=== PATIENT | female | born 2000 | race African-American/Black ===

== ENCOUNTER 2024-01-30 18:01 | Emergency (ER) | payer MEDICAID, OTHER ==
[2024-01-30 20:12] LABS: HEPATITIS C AB NON-REACTIVE (Non-React)
[2024-01-30 20:13] LABS: HIV RAPID SCREEN RLFX COMFIRM NON-REACTIVE (Non-React)
[2024-02-01 11:47] LABS: HBS AB 3.41 IU/L
== END 2024-01-30 19:38 | disposition home or self-care (01) ==
LOC: JD.ED 18:01
DX: Z77.21 Contact with and (suspected) exposure to potentially hazardous body fluids (principal)
CPT/HCPCS: 36415; 86706; 86803; 99282; 99283; G0433

== ENCOUNTER 2024-12-27 14:52 | Day surgery (SDC) | payer BC ==
[~2024-12-27 14:52] MED LIST: Propofol 200 MG/20 ML SDV ONE
[2024-12-27 16:11] LABS: ALBUMIN 3.6 g/dl (3.4-5.0); ANION GAP 11.9 (5-15); BILIRUBIN TOTAL 0.3 mg/dL (0.2-1.0); BUN/CREATININE RATIO 8.6 (14-18); CALCIUM 9.1 mg/dL (8.5-10.1); CREATININE 0.7 mg/dL (0.55-1.02); EST CRCL DRUG DOSING (CG) 139.28 mL/min; MAGNESIUM 1.8 mg/dL (1.8-2.4); POTASSIUM,K 3.9 mEq/L (3.5-5.1); PROTEIN TOTAL,TP 7.3 g/dl (6.4-8.2)
[2024-12-27] MEDS: Sodium Chloride 0.9% 250 ML IV SCH (17:31)
[2024-12-27] MEDS ORDERED: Lactated Ringers 1,000 ML IV ONE (18:55)
[2024-12-27] MEDS ORDERED: fentaNYL 100 MCG/2 ML SDV ONE (18:56)
[2024-12-27] MEDS ORDERED: Midazolam 1 MG/ML 2 ML SDV ONE (18:56)
[2024-12-27] MEDS ORDERED: Ketamine 200 MG/20 ML MDV ONE (18:56)
[2024-12-27] MEDS ORDERED: Ketorolac 30 MG/ML SDV ONE (19:31)
[2024-12-27] MEDS ORDERED: Ondansetron 4 MG/2 ML SDV ONE (19:31)
[2024-12-27] MEDS: Bupivacaine 0.5% 30 ML SDV ONE (19:36)
[2024-12-27] MEDS ORDERED: Methylergonovine 0.2 MG/1 ML Amp ONE (19:41)
[2024-12-27] MEDS ORDERED: fentaNYL 100 MCG/2 ML SDV IVPUSH PRN (20:13)
[2024-12-27] MEDS ORDERED: HYDROmorphone 0.5 MG/0.5 ML Syringe IVPUSH PRN (20:13)
[2024-12-27] MEDS ORDERED: Ondansetron 4 MG/2 ML SDV IVPUSH PRN (20:13)
== END 2024-12-27 21:06 | disposition home or self-care (01) ==
LOC: JD.ED 14:52 → JD.SDS 18:54
PROVIDERS: ATTEND Obstetrics & Gynecology
DX: O03.4 Incomplete spontaneous abortion without complication (principal)
CPT/HCPCS: 36415; 36430; 59812; 76830; 80053; 83735; 86850; 86900; 86901; 86922; J0665; J2210; J7050; P9016; 99285; J1885; J2250; J2405; J2704; J3010; J3490; J7120